=== PATIENT | male | born 1985 | race Caucasian/White ===

== ENCOUNTER 2021-06-24 18:09 | Emergency (ER) | payer SELFPAY ==
--- NOTE | 2021-06-24 18:42 | Emergency Department Report ---
ED Psych HPI - General Chief Complaint: Psych Stated Complaint: CHEST PAIN/PSYCH Time Seen by Provider: 06/24/21 18:29 Source: patient, EMS Mode of arrival: Ambulatory - History of Present Illness Initial Comments: Patient is 36 years old male with history of schizophrenia. Patient presented to the ER via EMS from a local liquor store for mental health evaluation patient is also complaining of patient stated that he is feeling suicidal and his plan is to jump off the bridge. Patient is also complaining of epigastric abdominal pain that radiated to his back. Patient stated that this is started today. Patient admitted that he drink some liquor today. He denied any nausea or vomiting. No fever or chills. MD Complaint: suicidal ideation -: days(s) Associated Psychiatric Symptoms: suicidal ideation, racing thoughts, auditory hallucinations Quality: constant Context: recent alcohol abuse Associated Symptoms: denies other symptoms Treatments Prior to Arrival: none If Self Harm: admits thoughts of, has plan, self-inflicted trauma - Related Data Previous Rx's Medication Instructions Recorded Last Taken Type ARIPiprazole [Abilify] 30 mg PO DAILY #30 06/25/21 Unknown Rx QUEtiapine [SEROquel] 100 mg PO BID #60 tab 06/25/21 Unknown Rx Allergies Allergy/AdvReac Type Severity Reaction Status Date / Time No Known Allergies Allergy Verified 06/24/21 18:13 ED Review of Systems ROS: Stated complaint: CHEST PAIN/PSYCH Other details as noted in HPI Comment: All other systems reviewed and negative Constitutional: denies: chills, fever Respiratory: denies: cough, shortness of breath, SOB with exertion, SOB at rest Cardiovascular: chest pain. denies: palpitations, dyspnea on exertion Gastrointestinal: denies: abdominal pain, nausea, vomiting Musculoskeletal: denies: back pain Neurological: denies: headache, weakness, numbness, paresthesias, confusion, abnormal gait ED Past Medical Hx - Medications Home Medications: Home Medications Medication Instructions Recorded Confirmed Last Taken Type ARIPiprazole [Abilify] 30 mg PO DAILY #30 06/25/21 Unknown Rx QUEtiapine [SEROquel] 100 mg PO BID #60 tab 06/25/21 Unknown Rx ED Physical Exam - General Limitations: No Limitations General appearance: alert, in no apparent distress - Head Head exam: Present: atraumatic, normocephalic, normal inspection - Eye Eye exam: Present: normal appearance - ENT ENT exam: Present: normal exam, normal orophraynx, mucous membranes moist - Neck Neck exam: Present: normal inspection, full ROM. Absent: tenderness, meningismus - Respiratory Respiratory exam: Present: normal lung sounds bilaterally - Cardiovascular Cardiovascular Exam: Present: tachycardia. Absent: systolic murmur, diastolic murmur - GI/Abdominal GI/Abdominal exam: Present: soft, normal bowel sounds. Absent: distended, tenderness, guarding, rebound, rigid, organomegaly, mass, bruit, pulsatile mass, hernia - Extremities Exam Extremities exam: Present: normal inspection, full ROM, normal capillary refill. Absent: tenderness, pedal edema, joint swelling, calf tenderness - Back Exam Back exam: Present: normal inspection, full ROM. Absent: CVA tenderness (R), CVA tenderness (L) - Neurological Exam Neurological exam: Present: alert, oriented X3, CN II-XII intact, normal gait, reflexes normal. Absent: motor sensory deficit - Psychiatric Psychiatric exam: Present: depressed, suicidal ideation. Absent: anxious, flat affect, manic, homicidal ideation - Skin Skin exam: Present: warm, intact, normal color ED Course Vital Signs 06/24/21 06/24/21 06/24/21 18:10 18:43 18:44 Temperature 98 F 97.6 F Pulse Rate 103 H 106 H Respiratory 18 14 16 Rate Blood Pressure 145/97 147/100 [Left] O2 Sat by Pulse 98 97 97 Oximetry 06/24/21 06/24/21 06/24/21 18:52 20:36 21:05 Temperature 97.4 F L Pulse Rate 106 H 121 H Respiratory 20 Rate Blood Pressure 144/117 [Left] O2 Sat by Pulse 100 97 Oximetry 06/25/21 06/25/21 03:33 09:03 Temperature 98.3 F Pulse Rate 106 H Respiratory 18 Rate Blood Pressure 151/113 [Left] O2 Sat by Pulse 98 98 Oximetry ED Medical Decision Making - Lab Data Result diagrams: 06/24/21 18:48 06/24/21 18:48 - EKG Data -: EKG Interpreted by Tn EKG shows normal: sinus rhythm Rate: normal - EKG Data Interpretation: no acute changes - Radiology Data Radiology results: report reviewed - Medical Decision Making Patient is 36 years old male with history of schizophrenia. Patient presented to the ER via EMS from a local liquor store for mental health evaluation patient is also complaining of patient stated that he is feeling suicidal and his plan is to jump off the bridge. Patient is also complaining of epigastric abdominal pain that radiated to his back. Patient stated that this is started today. Patient admitted that he drink some liquor today. He denied any nausea or vomiting. No fever or chills. EKG is unremarkable. Labs reviewed and is unremarkable except for elevated alcohol level of 0.15. Chest x-ray is unremarkable. Patient is still suicidal. Patient is alert, oriented x3 in no acute distress. Patient is medically cleared to be evaluated by psychiatric team. Critical care attestation.: If time is entered above; I have spent that time in minutes in the direct care of this critically ill patient, excluding procedure time. ED Disposition Clinical Impression: Suicidal ideation, Alcohol intoxication Disposition: HOME / SELF CARE / HOMELESS Is pt being admited?: No Condition: Stable Instructions: Persistent Depressive Disorder, Adult, Binge-Drinking Information, Adult, Suicidal Feelings: How to Help Yourself Additional Instructions: Stop drinking alcohol. Drink water. Follow-up as directed by behavioral health and with a primary care physician. Per psych provider, Ashley Turk, pt has been cleared by psych. Outpatient resources placed in d/c instructions. Professional and Agency Contacts To help [facility](04/11) [place] Crisis Line: Suicide Prevention Line: Crisis Text Line: Text START to 317260 Emergency: 911 Outpatient COMMUNITY Behavioral Health Resources: [facility]ARAD: [facility] [address] [place], [place] [address] [place]: [facility] [address] [place] [address] [place]: [facility] - [address] [place] [address] Friday thru Friday - 8am - 5pm [place]: [facility] Service Address: [address], [place] [address] [facility] Address: [address] [place] [id number] thru Friday- 7am-2pm [facility] Address: [address] [place] [address] Friday thru Friday: 8:30AM-5PM In case of an emergency, please contact the following numbers: [place] Crisis and Access Line: Number: Crisis Text Line: (Text START) Number: 496317 Suicide Prevention Line: Number: Emergency Number: 911 SUBSTANCE ABUSE PROGRAMS: [facility] [place]: Location: [place], [place] [employer] Address: [address] [place] [address] [facility] Recovery: Address: [address] [place] [address] [facility]: Address: [address] [place] [address] [facility]: Address: [address] [place] [address] [facility] Address: [address] [place] [address]. Please contact above numbers to attempt placement into free based program. Medicaid Programs: [facility]: Address: [address] [place] [address] [facility]: Address: [address] [place] [address] [facility] [employer] [facility] [employer] goal is to take chronically homeless men and help them overcome their barriers, change them as human beings, making them productive and self- sufficient individuals. Each [employer] participant is housed at our facility for up to a year while they participate in transitional work (earning $7.40/hr for 30+ hours per week) . All participants renounce dependency and remain drug and alcohol free. Personal support, case management, and workforce training is offered throughout the program. We also provide AA/NA Classes, GED classes, support in obtaining a logging truck driver's licenses, help setting up a bank account, and life skill preparation courses. IF A MAN IS COMMITTED TO BEING CLEAN, TO ADDRESSING THE PAST, AND TO WORKING, WE WILL HELP HIM GET A AIRPLANE CABIN ATTENDANT JOB, TRANSPORTATION AND PERMANENT HOUSING WITHIN A YEAR. [employer] [address] [place], [place] [id number] [email or web address] HOMELESS RESOURCES: [facility] NEED HELP? If you are in need of help or know someone who does, please contact us at [email or web address] or call , or come to our offices at [address] [place] [address], Friday-Friday beginning at 8AM. [facility] Males only Admission at 7am Fri to Fri Address: [address] [place] [address] Client Engagement Center [phone] Regular program admission occurs Friday through Friday at 7:00 am and operates on a first come, first serve basis. Because we cant anticipate program availability in advance and program spots are in high demand, we recommend arriving early. Space fills up fast! Next steps can include: Assignment to a [facility] program bed Connection to and placement in a partner program, or Referral to a partner agency [facility]: [facility], WOMENS Address: [address] [place] [address] How do I join the [facility] housing program? Our housing programs are offered based on availability. If you are looking to participate in our housing program, simply call [phone] to find out if we have available space. Since we do receive many calls, please allow up to 48 hours for one of our housing specialists to return your call. If we do not have vacancies, we suggest calling the ensembli hotline at 211 for additional housing options. [facility] [place] Admission at 4:30pm daily Address: [place] [address] [facility] Admission from 8am to 10am Daily No intake until 04/10/20 Address: [place] [address] [facility] WOMEN and FAMILY Admission Address: [address], [place] [address] Prescriptions: ARIPiprazole [Abilify] 30 mg PO DAILY #30 QUEtiapine [SEROquel] 100 mg PO BID #60 tab Referrals: ADAIR FERNANDEZ MD [Primary Care Provider] - 3-5 Days
--- NOTE | 2021-06-24 18:54 | XRay Report ---
CHEST 1 VIEW INDICATION: Medical Clearance Psych. COMPARISON: None FINDINGS: SUPPORT DEVICES: None. HEART: Within normal limits. LUNGS/PLEURA: No acute air space or interstitial disease. ADDITIONAL FINDINGS: None. IMPRESSION: 1. No acute findings. Signer Name: Yuri Dhaliwal MD Signed: 06/24/2021 6:50 PM Workstation Name: [id number]
[2021-06-24 19:08] LABS: Basophils % (Auto) 0.3 % (0.0-1.8); Eosinophils # (Auto) 0.1 K/mm3 (0.0-0.4); Lymphocytes # (Auto) 3.3 K/mm3 (1.2-5.4); Lymphocytes % (Auto) 32.2 % (13.4-35.0); Mean Corpuscular HGB Conc 36 % (32-34); Mean Corpuscular Volume 83 fl (84-94); Monocytes # (Auto) 0.6 K/mm3 (0.0-0.8); Monocytes % (Auto) 5.9 % (0.0-7.3); Platelet Count 326 K/mm3 (140-440); Red Blood Count 4.72 M/mm3 (3.65-5.03); Red Cell Distribution Width 14.7 % (13.2-15.2)
[2021-06-24 19:10] LABS: Hematocrit 39.4 % (35.5-45.6); Hemoglobin 14.2 gm/dl (11.8-15.2)
[2021-06-24 19:18] LABS: INR 0.97 (0.87-1.13)
[2021-06-24 19:19] LABS: Partial Thromboplastin Time 26.4 Sec. (24.2-36.6)
[2021-06-24 19:40] LABS: BUN/Creatinine Ratio 19; Blood Urea Nitrogen 15 mg/dL (9-20); Calcium 8.5 mg/dL (8.4-10.2); Hemolysis Index 7
[2021-06-24 19:52] LABS: Bilirubin,Urine NEG (Negative); Blood,Urine NEG (Negative); Color,Urine Straw (Yellow); Protein,Urine <15 mg/dL mg/dL (Negative); Urobilinogen,Urine < 2.0 mg/dL (<2.0)
[2021-06-24 19:57] LABS: WBC,Urine < 1.0 /HPF (0.0-6.0)
[2021-06-24 20:01] LABS: Amphetamine Screen,Urine Negative; Benzodiazepines Screen,Urine Negative; Cannabinoid Screen,Urine Negative; Cocaine Screen,Urine Negative; Methadone Screen,Urine Negative; Opiate Screen,Urine Negative
[2021-06-25] MEDS ORDERED: ZIPRASIDONE MESYLATE 20 MG VIAL IM ONE (00:05)
[2021-06-25 04:29] VITALS: BP 151/113
--- NOTE | 2021-06-25 09:15 | Consultation ---
History of Present Illness - Reason for Consult Consult date: 06/25/21 Reason for consult: out of meds - History of Present Psychiatric Illness The patient was seen today. He is sleeping but easily arouses. He says he came to the hospital because he was out of his abilify and seroquel. He says he told them when he came in he was suicidal. He says "I just told them that to get the meds." The patient says he drinks a little of vodka daily. He says his last drink was a few days ago. Discussed with the patient alcohol cessation. He denies any illicit drug use. He says he has a history of schizophrenia. The patient denies SI/HI. He says "no, I told you I just told them that so I could get back here and get my meds." He denies hallucinations. PAST PSYCHIATRIC HISTORY Diagnoses: Schizophrenia Suicide attempts or Self-harm behavior: Denies Prior psychiatric hospitalizations: Denies Substance Abuse history: Alcohol Previous psychiatric medications tried: Seroquel and abilify Outpatient treatment: Yes PAST MEDICAL HISTORY: None reported Family Psychiatric History: None reported or documented SOCIAL HISTORY Living arrangement: lives with mom Marital status: Single Employment status: Unemployed REVIEW OF SYSTEMS Constitutional: Negative for weight loss ENT: Negative for stridor Respiratory: Negative for cough or hemoptysis All other systems reviewed and are negative MENTAL STATUS EXAMINATION General Appearance and Behavior: Age appropriate, good hygiene, wearing appropriate clothes, good eye contact, cooperative, drowsy Cooperation: Participating/engaged, but Guarded Psychomotor Behavior: Psychomotor normal Mood: okay Affect and affective range: congruent with stated mood Thought Process: goal directed Thought Content: None Speech: normal tone and pace Suicidal Ideation: Denies Homicidal Ideation: Denies Hallucinations: Denies Delusions: none elicited Impulse Control: Limited Insight and Judgment: Limited insight and judgment Memory: Normal Attention: Undivided Orientation: Alert, oriented Assessment and Plan Hx of Schizophrenia Treatment Abilify 30mg po daily Seroquel 100mg po BID Sitter: Per primary Medical: Per primary Disposition: Do not recommend acute psychiatric inpatient treatment. The patient understands that if SI/HI or any fear of endangerment arise he is to seek immediate assistance The patient to abstain from alcohol use The excavator backhoe operator to give all resources including CBT and alcohol rehab The excavator backhoe operator also to further discuss safety plan with the patient Will sign off. Thank you for this consult Case staffed with Dr. Maravilla Medications and Allergies Allergies Allergy/AdvReac Type Severity Reaction Status Date / Time No Known Allergies Allergy Verified 06/24/21 18:13 Home Medications Medication Instructions Recorded Confirmed Last Taken Type ARIPiprazole [Abilify] 30 mg PO DAILY #30 06/25/21 Unknown Rx QUEtiapine [SEROquel] 100 mg PO BID #60 tab 06/25/21 Unknown Rx Mental Status Exam - Vital signs Last Vital Signs Temp 98.3 F 06/25/21 03:33 Pulse 106 H 06/25/21 03:33 Resp 18 06/25/21 03:33 BP 151/113 06/25/21 03:33 Pulse Ox 98 06/25/21 09:03 Results Result Diagrams: 06/24/21 18:48 06/24/21 18:48 Abnormal lab results 06/24/21 06/24/21 06/24/21 Range/Units 18:48 18:48 18:48 MCV 83 L (84-94) fl MCHC 36 H (32-34) % Glucose 112 H (75-100) mg/dL Salicylates < 0.3 L (2.8-20.0) mg/dL Acetaminophen (10.0-30.0) ug/mL Plasma/Serum Alcohol (0-0.07) % 06/24/21 06/24/21 Range/Units 18:48 18:48 MCV (84-94) fl MCHC (32-34) % Glucose (75-100) mg/dL Salicylates (2.8-20.0) mg/dL Acetaminophen 5.0 L (10.0-30.0) ug/mL Plasma/Serum Alcohol 0.15 H (0-0.07) % All other labs normal.
[2021-06-25] MEDS ORDERED: hydrOXYzine PAMOATE 25 MG CAP PO SCH (10:00)
--- NOTE | 2021-06-25 10:03 | Emergency Department Report ---
Blank Doc - Documentation Documentation: Patient has been seen by psychiatric services and cleared. The patient states that we were told he was suicidal "so he could get his medications." Patient was discharged as written.
--- NOTE | 2021-06-25 11:17 | Electrocardiograph Report ---
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
== END 2021-06-25 12:00 | disposition home or self-care (01) ==
LOC: ED 18:09
DX: R45.851 Suicidal ideations (principal); F10.129 Alcohol abuse with intoxication, unspecified; Z20.822 Contact with and (suspected) exposure to COVID-19
CPT/HCPCS: 36415; 71045; 80048; 80307; 81001; 83690; 85025; 85610; 85730; 93005; 96372; 99285; J3486; U0003; 80320; G0480